=== PATIENT | female | born 1935 | race Caucasian/White ===

== ENCOUNTER → 2021-01-07 | Outpatient (CLI) | payer MEDICARE | LOC: COL.RAD 09:39 | DX: R91.1 Solitary pulmonary nodule (principal); Z85.038 Personal history of other malignant neoplasm of large intestine; Z90.710 Acquired absence of both cervix and uterus; Z90.49 Acquired absence of other specified parts of digestive tract | CPT/HCPCS: Q9967 ==

== ENCOUNTER → 2022-10-31 | Outpatient (CLI) | payer MEDICARE | LOC: COL.RAD 08:09 | DX: R42 Dizziness and giddiness (principal) ==